=== PATIENT | male | born 1985 | race Caucasian/White ===

== ENCOUNTER 2022-11-22 09:56 | Emergency (ER) | payer OTHER ==
[~2022-11-22] VITALS: Ht 188 cm; Wt 75.1 kg
[2022-11-22] MEDS ORDERED: LIDOCAINE W/EPINEPHRINE 1% 20ML VIAL SC ONE (12:45)
[2022-11-22 13:28] VITALS: BP 121/76; TEMP 98.1; O2SAT 100
== END 2022-11-22 13:35 | disposition home or self-care (01) ==
LOC: M ED 09:56
DX: K64.5 Perianal venous thrombosis (principal)

== ENCOUNTER 2025-01-26 10:31 | Emergency (ER) | payer OTHER ==
[~2025-01-26] VITALS: Ht 188 cm; Wt 77.0 kg
[2025-01-26 10:33] VITALS: TEMP 97.7
[2025-01-26 11:05] LABS: KETONE, URINE AUTO RFX NEGATIVE (NEGATIVE); NITRITE, URINE AUTO RFX NEGATIVE (NEGATIVE); RBC, URINE AUTO RFX 7 /HPF (0-3); SQUAM EPITHELIAL CELL UR AURFX 0 /HPF (0-6)
[2025-01-26 11:07] LABS: LEUKOCYTE ESTERASE UR AUTO RFX 2+ (NEGATIVE); WBC, URINE AUTO RFX 79 /HPF (0-3)
[2025-01-26 12:04] LABS: Trichomonas vaginalis (AMP) NOT DETECTED (NEGATIVE)
[2025-01-26 12:28] LABS: GC DNA AMPLIFICATION POSITIVE (NEGATIVE)
[2025-01-26] MEDS ORDERED: NITR100C3 PO (14:21)
[2025-01-26 14:24] LABS: HIV 1&2 SCREEN NEGATIVE (NEGATIVE)
[2025-01-26 14:27] VITALS: BP 157/98; O2SAT 99
[2025-01-26] MEDS: cefTRIAXone 500 MG VIAL IM ONE (14:36)
[2025-01-26] MEDS: LIDOCAINE 1% SDV 5 ML VIAL DILUENT ONE (14:36)
== END 2025-01-26 14:48 | disposition home or self-care (01) ==
LOC: M ED 10:31
DX: N39.0 Urinary tract infection, site not specified (principal); A54.01 Gonococcal cystitis and urethritis, unspecified; R36.9 Urethral discharge, unspecified; F17.200 Nicotine dependence, unspecified, uncomplicated; F10.10 Alcohol abuse, uncomplicated; Z79.2 Long term (current) use of antibiotics
CPT/HCPCS: 81001; 86780; 87086; 87389; 87661; 87810; 87850; 96372; 99283; J0696